=== PATIENT | male | born 1970 | race Caucasian/White ===

== ENCOUNTER 2016-11-07 21:04 | Observation (INO) | payer BC ==
--- NOTE | ~2016-11-07 | HP ---
History And Physical [facility] [address] [place]. [address] NAME: MARLEN KULKARNI : 74 STATUS : ADM Eveline PAT#: [id number] AGE: 46 ADM/REG DATE : 11/07/16 MR#: [id number] REPORT SERV DATE: 11/08/16 DICTATED BY: JERICA RODRÍGUEZ DATE: 11/08/16 REPORT STATUS : Draft TRANSCRIBED BY: MODL DATE: 11/08/16 DATE OF ADMISSION: 11/07/2016 REASON FOR ADMISSION: This is a Cardiology admission H and P regarding chest discomfort. HISTORY OF PRESENT ILLNESS: Mr. Kulkarni is a 46-year-old gentleman, who has been describing chest discomfort both with and without activity over the last few days. He notes that it is a pressure sensation. He is denying any diaphoresis, left arm or jaw pain. He denies having this problem in the past. He went to a hospital in [place] with these complaints. He underwent a workup for acute coronary syndrome, which included EKGs, troponin values and a stress testing, all of which were reported to him as being unremarkable. He continued to have these complaints and then decided to come to last night. Here, initial workup was the same with normal troponin findings and normal electrocardiogram. His blood pressure was found to be poorly controlled. He was admitted for further observation. The patient has a known history of longstanding hypertension and claims that he does not take his medications all that well. His CAD risk factors include hypertension and a family history of coronary artery disease in the patient's father. PAST MEDICAL HISTORY: Notable for hypertension. No other significant past medical history is noted. HOME MEDICATIONS: Include aspirin p.r.n., ibuprofen, Prinivil, omega-3 fatty acids. FAMILY HISTORY: Notable for premature coronary disease in the patient's father. SOCIAL HISTORY: Denies alcohol. Denies tobacco abuse. Denies illicit drug use. REVIEW OF SYSTEMS: As noted above. All other systems reviewed and negative. PHYSICAL EXAMINATION: VITAL SIGNS: His blood pressure most recently was 157/98, his pulse is 70, respirations 16, and O2 sat 98%. GENERAL: Well developed, well nourished. HEENT: No icterus. Good dentition. NECK: Supple. No masses or thyromegaly. LUNGS: Breathing comfortably. No rales or wheezes. COR: Normal S1 and S2. No S3 or S4. No murmurs, clicks, rubs. No JVD. ABD: Soft, nondistended. No hepatosplenomegaly. Some epigastric abdominal tenderness to palpation. EXT: No clubbing, cyanosis, or edema. Peripheral pulses 2+/= bilaterally. SKIN: Warm and dry. No visible lesions. MS: Chest wall without deformity. No obvious clavicular fractures. NEURO/PSYCH: Oriented x3. No anxiety or depression. History And Physical [address] [address] NAME: MARLEN KUKLARNI : 74 STATUS : ADM Eveline PAT#: [id number] AGE: 46 ADM/REG DATE : 11/07/16 MR#: [id number] REPORT SERV DATE: 11/08/16 DICTATED BY: JERICA RODRÍGUEZ DATE: 11/08/16 REPORT STATUS : Draft TRANSCRIBED BY: SILAS DATE: 11/08/16 LABORATORY VALUES: Electrolytes are within normal limits. His creatinine is elevated at 1.48 with a GFR of 66. His white count is 8.7, hematocrit of 41, platelet count of 222. Troponins are negative x2 at less than 0.02. His EKG shows normal sinus rhythm, normal intervals. No evidence for ischemia, infarction, or chamber hypertrophy. Laboratory values were also notable for an elevation in D-dimer, and the patient underwent a CT scan to rule out pulmonary embolus. While the pulmonary embolus was ruled out, he did have two soft lesions noted, one in the right middle lobe that was 4.5 mm and the other in the left lower lobe that was 7 mm. The recommendation was for followup in six months with a repeat CT scan. IMPRESSION: 1. Chest discomfort, somewhat atypical in that it is not associated with activity or relieved with rest. He does, however, have significant CAD risk factors for male sex, hypertension, and family history of coronary disease. His workup thus far including troponin values and treadmill are all unremarkable. His CT scan was negative for evidence of dissection or pulmonary embolus. Given the fact that he has come back to the hospital and is still having these complaints and has some significant CAD risk factors, I have recommended cardiac catheterization. If the catheterization is negative, most likely we will discharge to home later today. We will plan on an echocardiogram as well for evaluating cardiac structure and function. Continue aspirin 81 mg. Add carvedilol to his current medications. 2. Hypertension, poorly controlled. The patient is on lisinopril. We will add carvedilol as mentioned. He may need higher doses and further agents which may need to be adjusted as an outpatient. 3. We will check the patient's fasting cholesterol today. 4. Epigastric discomfort noted with tenderness to palpation. I am going to add Prilosec to his current medicines. Would recommend limiting his use of ibuprofen and other NSAIDs. 5. Abnormal CT scan. These were lesions of low suspicion both in the right middle lobe and left lower lobe, both smaller lesions. The recommendation was for repeat CT scan in six months and we will arrange to have this completed. OREN/SILAS Jerica Rodríguez M.D. / [id number] CC: Jerica Rodríguez M.D.
[2016-11-07 20:17] LABS: BASOPHILS 0.5 %; BASOPHILS ABSOLUTE 0.04 10/3/uL (0.0-0.16); EOSINOPHILS 4.8 %; EOSINOPHILS ABSOLUTE 0.42 10/3/uL (0.0-0.53); ER CBC TAT 0 Hrs 03 Mins; IMMATURE GRANULOCYTES 0.2 %; IMMATURE GRANULOCYTES ABSOLUTE 0.02 10/3/uL (0.0-0.11); LYMPHOCYTES 22.9 %; LYMPHOCYTES ABSOLUTE 1.99 10/3/uL (0.67-4.30); MEAN CORPUS HGB CONC 34.1 g/dL (32.0-36.0); MEAN CORPUSCULAR HEMOGLOB 31.6 pg (26.0-34.0); MEAN CORPUSCULAR VOLUME 92.6 fL (80-100); MEAN PLATELET VOLUME 11.1 fL (9.2-13.0); MONOCYTES 8.7 %; MONOCYTES ABSOLUTE 0.76 10/3/uL (0.21-1.20); NEUTROPHILS 62.9 %; NEUTROPHILS ABSOLUTE 5.47 10/3/uL (2.02-8.40); PLATELET COUNT 222 10/3/uL (150-400); RBC DISTRIBUTION WIDTH 13.1 % (12.0-16.0); RED CELL COUNT 4.43 10/6/uL (4.7-6.1); WHITE BLOOD CELLS 8.7 10/3/uL (4.5-10.5)
[2016-11-07 20:18] LABS: MANUAL DIFF NO %
[2016-11-07 20:24] LABS: INTERNATIONAL NORMAL RATI 1.1 UNITS (-); PROTIME (NOT ORD) 13.9 SEC (12.0-14.5)
[2016-11-07 20:32] LABS: BUN (BLOOD UREA NITROGEN) 14 MG/DL (6-23); CHEST PAIN PROFILE TAT 0 Hrs 18 Mins; CHLORIDE, SERUM 105 MMOL/L (96-112); CO2 (CARBON DIOXIDE) 28 MMOL/L (24-34); CREATININE 1.48 MG/DL (0.70-1.30); GFR AFRICAN AMERICAN 66 ML/MIN (>=60); GFR NON AFRICAN AMERICAN 57 ML/MIN (>=60); GLUCOSE, SERUM 94 MG/DL (60-99); POTASSIUM, SERUM 4.2 MMOL/L (3.5-5.3); SODIUM, SERUM 140 MMOL/L (135-148); TROPONIN I <0.02 NG/ML (<0.05)
[2016-11-07 21:04] LABS: D-DIMER QUANTITATIVE 1.38 ug/mLFEU (< 0.50)
[~2016-11-07 21:04] MED LIST: ADVIL PO; ASAB PO; BEN25 PO; FISH-EPA1000 MG PO; PRIN10 PO; TYLENOL PM PO; [UNRECOGNIZED DRUG - OTHER] PO
[2016-11-08 09:40] LABS: BUN (BLOOD UREA NITROGEN) 11 MG/DL (6-23); CALCIUM, SERUM 8.6 MG/DL (8.5-10.4); CHLORIDE, SERUM 106 MMOL/L (96-112); CO2 (CARBON DIOXIDE) 24 MMOL/L (24-34); CREATININE 1.28 MG/DL (0.70-1.30); GFR AFRICAN AMERICAN 78 ML/MIN (>=60); GFR NON AFRICAN AMERICAN 68 ML/MIN (>=60); GLUCOSE, SERUM 102 MG/DL (60-99); POTASSIUM, SERUM 4.2 MMOL/L (3.5-5.3); SODIUM, SERUM 141 MMOL/L (135-148)
[2016-11-08 13:00] LABS: ASCORBIC ACID (UR NOT ORDER) NEG (NEG); BILIRUBIN, URINE NEGATIVE (NEG); KETONE, URINE NEGATIVE (NEG); LEUKOCYTE ESTERASE(NOT OR NEG (NEG); WBC (NOT ORDERED) (RFLEX) < 1 (0-5)
[2016-11-08] MEDS ORDERED: COREG6 PO (15:15)
[2016-11-08] MEDS ORDERED: PRILO PO (15:17)
[2016-11-08 16:00] LABS: CHOL/HDL RATIO(NOT ORDER) 2.5 (0-5); CHOLESTEROL 160 MG/DL (< 200); HDL CHOLESTEROL 63 MG/DL (> 39); LDL CHOLESTEROL 88 MG/DL (< 130); NON-HDL CHOLESTEROL 97 MG/DL (< 160); TRIGLYCERIDE 47 MG/DL (< 150)
== END 2016-11-08 18:25 | disposition home or self-care (01) ==
LOC: ER 21:04 → 5NO 22:00
PROVIDERS: Internal Medicine Cardiovascular Disease; Specialist
DX: I20.0 Unstable angina (principal); I10 Essential (primary) hypertension; Z79.82 Long term (current) use of aspirin; Z79.1 Long term (current) use of non-steroidal anti-inflammatories (NSAID); Z79.899 Other long term (current) drug therapy; Z82.49 Family history of ischemic heart disease and other diseases of the circulatory system
CPT/HCPCS: 71010; 71275; 80048; 80061; 81001; 82465; 83735; 84484; 85025; 85379; 85610; 85730; 93005; 93458; 96374; 96375; 96376; 99152; 99153; 99285; A9270-GY; C1769; C1887; C1894; G0378; J2250; J2405; J3010; Q9967